=== PATIENT | male | born 1935 | race African-American/Black ===

== ENCOUNTER 2019-09-14 10:32 | Day surgery (SDC) | payer MEDICARE ==
[~2019-09-14] VITALS: Ht 182.9 cm; Wt 93.9 kg
[2019-09-14 11:28] LABS: BASOPHILS % 0.7 % (0.0-2.0); EOSINOPHILS % 3.9 % (0.0-5.0); HEMOGLOBIN. 10.5 g/dL (14.0-18.0); LYMPHOCYTES % 13.3 % (20.0-50.0); MEAN CORPUSCULAR HEMOGLOBIN 27.6 pg (28.0-32.0); MEAN CORPUSCULAR VOLUME 89.4 fL (80.0-94.0); MEAN PLATELET VOLUME 7.9 fl (7.4-10.4); MONOCYTES % 8.9 % (2.0-8.0); NEUTROPHILS % 73.2 % (40.0-76.0); PLATELET 157 x1000/uL (130-400); RED BLOOD CELL COUNT 3.81 mill/uL (4.7-6.1); RED CELL DISTRIBUTION WIDTH 16.8 % (11.6-14.6)
[2019-09-14] MEDS ORDERED: BACITRACIN 15GM TUBE TOP ONE (12:38)
[2019-09-14] MEDS ORDERED: SODIUM CHLORIDE 0.9% 500 ML IV ONE (13:00)
[2019-09-14] MEDS ORDERED: SEVE800T8 PO (13:30)
[2019-09-14] MEDS ORDERED: FOLI1TAB87 PO (13:30)
[2019-09-14] MEDS ORDERED: ALLO100T PO (13:30)
[2019-09-14] MEDS ORDERED: ESOM40CA PO (13:30)
[2019-09-14] MEDS ORDERED: CINA30 PO (13:30)
[2019-09-14] MEDS ORDERED: SIMV-43 PO (13:30)
[2019-09-14] MEDS ORDERED: THROMBIN (BOVINE) 5000 UNITS/VIAL TOP ONE (14:42)
[2019-09-14] MEDS ORDERED: HEPARIN SODIUM 1,000 UNIT/1ML VIAL IV ONE (14:42)
[2019-09-14] MEDS ORDERED: LIDOCAINE HCL 1% 20ML VIAL (Pyxis) INJ ONE (14:42)
[2019-09-14] MEDS ORDERED: BACITRACIN 50,000 UNITS/VIAL ONE (14:43)
[2019-09-14] MEDS ORDERED: BUPIVACAINE HCL/PF 0.5% (5MG/ML) 10ML ONE (14:43)
[2019-09-14] MEDS ORDERED: FENTANYL CITRATE/PF 50MCG/ML 2ML VIAL ONE (16:29)
[2019-09-14] MEDS ORDERED: MIDAZOLAM HCL 2 MG/2 ML VIAL ONE (16:29)
[2019-09-14] MEDS ORDERED: PROPOFOL 200MG/20ML VIAL IV ONE (16:43)
[2019-09-14] MEDS ORDERED: GLYCOPYRROLATE 0.2 MG/ML 2ML VIAL ONE (16:45)
[2019-09-14] MEDS ORDERED: CEFAZOLIN SODIUM 1000MG/VIAL ONE (16:51)
[2019-09-14] MEDS ORDERED: SODIUM CHLORIDE 0.9% 10ML VIAL ONE (16:51)
[2019-09-14] MEDS ORDERED: PAPAVERINE HCL 30 MG/ML 2ML IV ONE (17:05)
[2019-09-14] MEDS ORDERED: SKIN ADHESIVE 0.7 GM EA TOP ONE (17:35)
[2019-09-14] MEDS ORDERED: HYDROMORPHONE HCL/PF 2MG/ML CPJ IV PRN (18:30)
[2019-09-14] MEDS ORDERED: ONDANSETRON HCL 4MG/2ML INJ IV PRN (18:30)
[2019-09-14] MEDS: HEPARIN SODIUM 1,000 UNIT/1ML VIAL IV NR ×2 (20:12→20:14)
== END 2019-09-14 20:35 | disposition home or self-care (01) ==
LOC: OR 10:32
PROVIDERS: ATTEND Surgery Vascular Surgery
DX: I12.0 Hypertensive chronic kidney disease with stage 5 chronic kidney disease or end stage renal disease (principal); N18.6 End stage renal disease; E78.00 Pure hypercholesterolemia, unspecified; Z79.899 Other long term (current) drug therapy; Z99.2 Dependence on renal dialysis; Z98.890 Other specified postprocedural states
CPT/HCPCS: 36415; 36821; 80048; 85025; 93005; J0690; J1644; J2250; J2405; J2440; J2704; J3010; J3490; J7040